=== PATIENT | female | born 1975 | race Caucasian/White ===

== ENCOUNTER 2017-12-27 09:26 | Emergency (ER) | payer BC ==
[~2017-12-27] VITALS: Ht 170.2 cm; Wt 107.5 kg
[2017-12-27] MEDS ORDERED: ALDACTONE50 MG PO (09:48)
[2017-12-27] MEDS ORDERED: PROTONIX40 M1 PO (09:48)
[2017-12-27] MEDS ORDERED: NEURONTIN 300300 M1 PO ×2 (09:49)
[2017-12-27] MEDS ORDERED: MOBIC15 MG PO (09:50)
[2017-12-27] MEDS ORDERED: SAVELLA50 MG PO (09:50)
[2017-12-27] MEDS ORDERED: CYMBALTA60 MG PO (09:51)
[2017-12-27] MEDS ORDERED: NORTRIPTYLINE H50 M3 PO (09:51)
[2017-12-27] MEDS ORDERED: PRAVACHOL40 MG PO (09:51)
[2017-12-27] MEDS ORDERED: METFORMIN HCL500 MG PO (09:52)
[2017-12-27 10:10] LABS: URINE BILIRUBIN NEGATIVE (Negative); URINE BLOOD NEGATIVE (Negative); URINE CLARITY CLEAR; URINE COLOR YELLOW; URINE GLUCOSE-RANDOM NEGATIVE (Negative); URINE KETONES NEGATIVE (Negative); URINE LEUKOCYTES-REFLEX NEGATIVE (Negative); URINE NITRITE-REFLEX NEGATIVE (Negative); URINE PROTEIN NEGATIVE (Negative); URINE UROBILINOGEN 0.2 E.U./dl (0.2-1.0)
[2017-12-27 10:30] LABS: ABSOLUTE BASOPHILS 0.1 thou/uL (0.0-0.2); ABSOLUTE EOSINOPHILS 0.3 thou/uL (0.0-0.7); ABSOLUTE LYMPHOCYTES 2.4 thou/uL (0.8-5.3); ABSOLUTE MONOCYTES 0.5 thou/uL (0.0-1.2); ABSOLUTE NEUTROPHILS 6.2 thou/uL (1.6-8.1); BASOPHILS 0.8 %; EOSINOPHILS 3.1 %; HEMATOCRIT 38.6 % (37.0-47.0); HEMOGLOBIN 12.8 gm/dL (12.0-15.0); LYMPHOCYTES 25.5 %; MCH 27.2 pg (26.0-34.0); MCHC 33.1 g/dL (28.0-37.0); MONOCYTES 5.2 %; MPV 9.5 fl. (7.2-11.1); NUCLEATED RBCS 0 /100WBC; PLATELET COUNT* 168 thou/uL (150-400); POLYS 65.4 %; RBC 4.71 mil/uL (4.20-5.00); WBC 9.5 thou/uL (4.0-11.0)
[2017-12-27 10:39] LABS: ANION GAP 7 mmol/L (7-16); BUN 14 mg/dL (7-18); CALCIUM 9.4 mg/dL (8.5-10.1); CHLORIDE 103 mmol/L (98-107); CO2 27 mmol/L (21-32); GLUCOSE 121 mg/dL (70-99); POTASSIUM 4.2 mmol/L (3.5-5.1); SODIUM 137 mmol/L (136-145)
[2017-12-27 10:47] LABS: ALBUMIN 3.9 g/dL (3.4-5.0); ALKALINE PHOSPHATASE 75 U/L (46-116); LIPASE 192 U/L (73-393); SGOT 15 U/L (15-37); SGPT 21 U/L (30-65); TOTAL BILIRUBIN 0.4 mg/dL (<0.1-1.0); TOTAL PROTEIN 7.6 g/dL (6.4-8.2); TROPONIN-I LEVEL <0.06 ng/mL (<0.06)
[2017-12-27] MEDS ORDERED: CITRATE OF MAG296 ML PO (12:14)
[2017-12-27] MEDS ORDERED: TORADOL 10 MG T10 MG PO (12:16)
[2017-12-27] MEDS ORDERED: ZOFRAN ODT4 MG PO (12:17)
[2017-12-27 12:26] VITALS: BP 134/81
== END 2017-12-27 12:27 | disposition home or self-care (01) ==
LOC: M.ERS 09:26
PROVIDERS: Physician Assistant
DX: K59.00 Constipation, unspecified (principal); M79.7 Fibromyalgia; E11.9 Type 2 diabetes mellitus without complications; E28.2 Polycystic ovarian syndrome

== ENCOUNTER 2020-05-06 16:42 | Emergency (ER) | payer BC ==
[~2020-05-06] VITALS: Ht 170.2 cm; Wt 104.3 kg
[~2020-05-06 16:42] MED LIST: ALDACTONE50 MG PO; CITRATE OF MAG296 ML PO; CYMBALTA60 MG PO; METFORMIN HCL500 MG PO; MOBIC15 MG PO; NEURONTIN 300300 M1 PO; NORTRIPTYLINE H50 M3 PO; PRAVACHOL40 MG PO; PROTONIX40 M1 PO; SAVELLA50 MG PO; TORADOL 10 MG T10 MG PO; ZOFRAN ODT4 MG PO
[2020-05-06] MEDS ORDERED: BUSPIRONE HCL10 MG PO (17:00)
[2020-05-06] MEDS ORDERED: CELEBREX50 MG PO (17:00)
[2020-05-06] MEDS ORDERED: PROZAC40 MG PO (17:00)
[2020-05-06 17:47] LABS: ABSOLUTE BASOPHILS 0.1 thou/uL (0.0-0.2); ABSOLUTE EOSINOPHILS 0.3 thou/uL (0.0-0.7); ABSOLUTE LYMPHOCYTES 2.9 thou/uL (0.8-5.3); ABSOLUTE MONOCYTES 0.6 thou/uL (0.0-1.2); ABSOLUTE NEUTROPHILS 5.7 thou/uL (1.6-8.1); EOSINOPHILS 2.8 %; HEMATOCRIT 43.1 % (37.0-47.0); HEMOGLOBIN 14.6 gm/dL (12.0-15.0); LYMPHOCYTES 30.1 %; MCV 85.3 fL (80.0-100.0); MPV 9.3 fl. (7.2-11.1); NUCLEATED RBCS 0 /100WBC; PLATELET COUNT* 202 thou/uL (150-400); POLYS 60.1 %; RBC 5.05 mil/uL (4.20-5.00); RDW-CV 14.9 % (10.5-14.5); WBC 9.6 thou/uL (4.0-11.0)
[2020-05-06 17:47] LABS: URINE BILIRUBIN NEGATIVE (Negative); URINE BLOOD NEGATIVE (Negative); URINE CLARITY CLEAR; URINE COLOR YELLOW; URINE GLUCOSE-RANDOM 1+ (Negative); URINE KETONES NEGATIVE (Negative); URINE LEUKOCYTES-REFLEX NEGATIVE (Negative); URINE NITRITE-REFLEX NEGATIVE (Negative); URINE PROTEIN NEGATIVE (Negative); URINE SPECIFIC GRAVITY 1.025 (1.005-1.030); URINE UROBILINOGEN 0.2 E.U./dl (0.2-1.0)
[2020-05-06 18:00] LABS: POTASSIUM 3.7 mmol/L (3.5-5.1)
[2020-05-06 18:04] LABS: ALBUMIN 3.9 g/dL (3.4-5.0); TOTAL BILIRUBIN 0.3 mg/dL (<0.1-1.0); TOTAL PROTEIN 7.9 g/dL (6.4-8.2)
[2020-05-06] MEDS ORDERED: BENTYL 20 MG TA20 M1 PO (19:34)
[2020-05-06] MEDS ORDERED: MIRALAX119 GM PO (19:34)
[2020-05-06] MEDS ORDERED: CITRATE OF MAG296 M1 PO (19:34)
[2020-05-06 19:52] VITALS: BP 145/87
== END 2020-05-06 19:52 | disposition home or self-care (01) ==
LOC: M.ERS 16:42
PROVIDERS: Physician Assistant
DX: R10.31 Right lower quadrant pain (principal); R10.11 Right upper quadrant pain; R19.7 Diarrhea, unspecified; M79.7 Fibromyalgia; E11.9 Type 2 diabetes mellitus without complications; Z79.899 Other long term (current) drug therapy